=== PATIENT | male | born 1945 | race American Indian/Alaskan Native ===

== ENCOUNTER 2020-01-20 01:35 | Inpatient (IN) | payer MEDICARE ==
[2020-01-20] MEDS ORDERED: SODIUM CHLORIDE 0.9% 1000 ML 1,000 ML IV ONE (01:58)
[2020-01-20] MEDS ORDERED: ONDANSETRON 4 MG/2 ML INJ ONE ×2 (02:00→03:41)
[2020-01-20 02:14] LABS: Basophils % (Auto) 0.3 % (0.0-1.8); Eosinophils # (Auto) 0.1 K/mm3 (0.0-0.4); Eosinophils % (Auto) 0.4 % (0.0-4.3); Hematocrit 35.7 % (35.5-45.6); Hemoglobin 11.1 gm/dl (11.8-15.2); Lymphocytes # (Auto) 0.8 K/mm3 (1.2-5.4); Lymphocytes % (Auto) 5.6 % (13.4-35.0); Mean Corpuscular HGB Conc 31 % (32-34); Mean Corpuscular Volume 80 fl (84-94); Monocytes # (Auto) 0.9 K/mm3 (0.0-0.8); Monocytes % (Auto) 6.2 % (0.0-7.3); Platelet Count 364 K/mm3 (140-440); Red Blood Count 4.48 M/mm3 (3.65-5.03)
[2020-01-20 02:17] LABS: Red Cell Distribution Width 20.1 % (13.2-15.2)
[2020-01-20 02:40] LABS: Albumin 3.9 g/dL (3.9-5); Calcium 9.1 mg/dL (8.4-10.2)
--- NOTE | 2020-01-20 02:46 | XRay Report ---
ABDOMEN, 4 VIEWS INDICATION / CLINICAL INFORMATION: MAIN: Abd pain; vomiting x 1 day. COMPARISON: None available. FINDINGS: Mild to moderate gastric distention. There is mildly dilated loop of small bowel in the left side of the abdomen. Otherwise the bowel gas pattern is normal. No evidence for fecal impaction. No obvious f ree air. IMPRESSION: Abnormal bowel gas pattern. There is gastric distention with air-fluid level as well as p rominent loop of small bowel in the left side of the abdomen. Although findings are nonspecific, I ca nnot exclude the possibility of a small bowel obstruction. Signer Name: Letty Armijo MD Signed: 01/20/2020 2:41 AM Workstation Name: [id number]
--- NOTE | 2020-01-20 02:53 | Emergency Department Report ---
HPI - General Chief Complaint: Abdominal Pain Time Seen by Provider: 01/20/20 01:50 - HPI HPI: 75-year-old male presents to the emergency department via EMS from home with complaint of abdominal pain, nausea and vomiting that started about 8 PM this evening. The pain is worse in the lower abdomen but overall is generalized. He has not taken anything for symptoms prior to presentation. Patient has a past medical history of hypertension, hyperlipidemia diverticulosis/diverticulitis, and previous DVT. He has a surgical history of cholecystectomy, as well as a previous colon perforation secondary to an infected diverticulitis. No recent travel or sick contacts at home. His primary care physician is Dr. Faith. ED Past Medical Hx - Past Medical History Previous Medical History?: Yes Hx Hypertension: Yes Hx COPD: Yes (on 2 Liters home o2) - Surgical History Past Surgical History?: Yes Hx Cholecystectomy: Yes Additional Surgical History: bilateral hip replacement. colon rupture. hernia repair x 2 - Social History Smoking Status: Current Every Day Smoker ED Review of Systems ROS: Stated complaint: ABD PAIN/VOMITING Other details as noted in HPI Comment: All other systems reviewed and negative Constitutional: denies: chills, fever Eyes: denies: eye pain, vision change ENT: denies: ear pain, throat pain Respiratory: denies: cough, shortness of breath Cardiovascular: denies: chest pain, palpitations Gastrointestinal: abdominal pain, nausea, vomiting Genitourinary: denies: dysuria, discharge Musculoskeletal: denies: back pain, arthralgia Skin: denies: rash, lesions Neurological: denies: headache, weakness Physical Exam - Physical Exam Vital Signs: Vital Signs 01/20/20 01/20/20 01/20/20 01:46 01:49 02:01 Temperature 97.6 F Pulse Rate 98 H 93 H 107 H Respiratory 24 26 H 33 H Rate Blood Pressure 166/73 Blood Pressure 168/98 [left arm] O2 Sat by Pulse 97 94 Oximetry Physical Exam: GENERAL: Patient is ill-appearing and actively vomiting. HENT: Normocephalic. Atraumatic. Patient has moist mucous membranes. EYES: Extraocular motions are intact. NECK: Supple. Trachea is midline. CHEST/LUNGS: Clear to auscultation. There is no respiratory distress noted. HEART/CARDIOVASCULAR: Regular. There is no tachycardia. There is no murmur. ABDOMEN: Abdomen is soft. Generalized abdominal tenderness to palpation worse in the lower quadrants. No guarding. Patient has normal bowel sounds. SKIN: Skin is warm and dry. NEURO: The patient is awake, alert, and oriented. The patient is cooperative. The patient has no focal neurologic deficits. Normal speech. MUSCULOSKELETAL: There is no tenderness or deformity. There is no evidence of acute injury. ED Course Vital Signs 01/20/20 01/20/20 01/20/20 01:46 01:49 02:01 Temperature 97.6 F Pulse Rate 98 H 93 H 107 H Respiratory 24 26 H 33 H Rate Blood Pressure 166/73 Blood Pressure 168/98 [left arm] O2 Sat by Pulse 97 94 Oximetry ED Medical Decision Making - Lab Data Result diagrams: 01/20/20 01:52 01/20/20 01:52 - Radiology Data Radiology results: report reviewed, image reviewed interpreted by me: Abdominal x-ray shows some dilated bowel gas concerning for obstruction. CT abdomen pelvis wo con INDICATION / CLINICAL INFORMATION: Pt complains of "Generalized" abdominal pain, possible obstruct. TECHNIQUE: Axial CT imaging of abdomen and pelvis was obtained without contrast. Coronal and sagittal reformatted imaging obtained and reviewed. All CT scans at this location are performed using CT dose reduction for ALARA by means of automated exposure control. COMPARISON: None available. FINDINGS: CT abdomen without contrast demonstrates normal appearance of the liver, spleen, pancreas, and adrenal glands. Prior cholecystectomy. There are a few simple cysts associated with both kidneys but no evidence for solid mass or hydronephrosis. IVC filter is present. Moderate amount of calcific plaque is present in the mid to distal abdominal aorta and common iliac arteries. Small hiatal hernia. CT pelvis does not demonstrate mass or free fluid. GI tract is abnormal. There are multiple loops of fluid-filled dilated small bowel. The distal small bowel is collapsed. The appearance is most consistent with a mid small bowel obstruction. No free air or free fluid is appreciated. Incidental finding of previous partial sigmoid resection. A normal appendix is visualized. Chronic appearing scarring is present in both lung bases. No pleural effusion. Mild spondylitic change throughout the visualized spine. Bilateral hip arthroplasties are present. IMPRESSION: 1. Findings consistent with mid small bowel obstruction. Bowel obstruction appears to be secondary to adhesions. - Medical Decision Making This patient presents to the emergency department with some acute abdominal pain, nausea and vomiting. The patient has had multiple episodes of vomiting while in the emergency department. His labs show a mild leukocytosis and some renal insufficiency. CT scan of the abdomen and pelvis shows a mid small bowel obstruction, most likely secondary to adhesions. An NG tube will be placed. General surgery has been contacted and consulted. The patient has been accepted for admission by his primary care physician, Dr. Faith. Critical Care Time: Yes Critical care time in (mins) excluding proc time.: 35 Critical care attestation.: If time is entered above; I have spent that time in minutes in the direct care of this critically ill patient, excluding procedure time. Critical care time was spent on this patient in doing his initial evaluation, multiple re- evaluations, ordering and interpretation of labs and imaging, discussion with general surgery, discussion with the admitting physician, and multiple discussions with the patient. Critical Care Time: 35 minutes ED Disposition Clinical Impression: Small bowel obstruction, Intractable nausea and vomiting, CANDACE (acute kidney injury) Hypertension Qualifiers: Hypertension type: essential hypertension Qualified Code(s): I10 - Essential (primary) hypertension Disposition: OP ADMIT IP TO THIS HOSP Is pt being admited?: Yes Condition: Serious Instructions: Hypertension (ED) Referrals: MIRIAM YADAV MD [Primary Care Provider] - 3-5 Days Time of Disposition: 06:15
[2020-01-20] MEDS ORDERED: ONDANSETRON 4 MG/2 ML INJ IV ONE (03:39)
[2020-01-20] MEDS ORDERED: MORPHINE 4 MG/1 ML INJ IV ONE (03:39)
[2020-01-20] MEDS ORDERED: MORPHINE 2 MG/1 ML INJ ONE (03:42)
--- NOTE | 2020-01-20 06:11 | Cat Scan Report ---
CT abdomen pelvis wo con INDICATION / CLINICAL INFORMATION: Pt complains of "Generalized" abdominal pain, possible obstruct. TECHNIQUE: Axial CT imaging of abdomen and pelvis was obtained without contrast. Coronal and sagittal reformatte d imaging obtained and reviewed. All CT scans at this location are performed using CT dose reduction for ALARA by means of automated exposure control. COMPARISON: None available. FINDINGS: CT abdomen without contrast demonstrates normal appearance of the liver, spleen, pancreas, and adrena l glands. Prior cholecystectomy. There are a few simple cysts associated with both kidneys but no fletcher dence for solid mass or hydronephrosis. IVC filter is present. Moderate amount of calcific plaque is present in the mid to distal abdominal aorta and common iliac arteries. Small hiatal hernia. CT pelvis does not demonstrate mass or free fluid. GI tract is abnormal. There are multiple loops of fluid-filled dilated small bowel. The distal small bowel is collapsed. The appearance is most consist ent with a mid small bowel obstruction. No free air or free fluid is appreciated. Incidental finding of previous partial sigmoid resection. A normal appendix is visualized. Chronic appearing scarring is present in both lung bases. No pleural effusion. Mild spondylitic change throughout the visualized spine. Bilateral hip arthroplasties are present. IMPRESSION: 1. Findings consistent with mid small bowel obstruction. Bowel obstruction appears to be secondary to adhesions. Signer Name: Letty Armijo MD Signed: 01/20/2020 6:06 AM Workstation Name: [id number]
[2020-01-20] MEDS ORDERED: PIPERACIL/TAZOBACTA 4.5/NS 100 4.5 GM/100 ML VIAL IV ONE (06:15)
[2020-01-20 07:16] LABS: Bilirubin,Urine NEG (Negative); Blood,Urine NEG (Negative); Color,Urine Yellow (Yellow); Mucus,Urine FEW /HPF; Protein,Urine <15 mg/dL mg/dL (Negative); RBC,Urine < 1.0 /HPF (0.0-6.0); Urobilinogen,Urine < 2.0 mg/dL (<2.0)
[2020-01-20 07:39] LABS: WBC,Urine < 1.0 /HPF (0.0-6.0)
[2020-01-20] MEDS ORDERED: hydrALAZINE 20 MG/1 ML INJ IV ONE (07:52)
[2020-01-20] MEDS: MORPHINE 2 MG/1 ML INJ IV PRN ×3 (08:01→22:29)
[2020-01-20] MEDS ORDERED: LORazepam 2 MG/ML VIAL ONE (09:09)
[2020-01-20] MEDS ORDERED: LORazepam 2 MG/ML VIAL IV ONE (09:20)
--- NOTE | 2020-01-20 11:23 | Consultation ---
History of Present Illness Consult date: 01/20/20 Reason for consult: abdominal pain Requesting physician: JAG FRANCIS Chief complaint: abdominal pain - History of present illness History of present illness: 74yo M with history of prior abdominal surgeries presents to the emergency room with complaints of acute onset of abdominal pain, nausea, vomiting since last evening. Evaluation with CT scan showed evidence suggestive of small bowel obstruction. Patient assessed to be clinically dry but otherwise stable by the emergency department. Patient was admitted. General surgery was consulted. Patient reports that he has never had a bowel obstruction before. His original surgery was about 10 to 12 years ago for a perforated diverticulitis for which a colon resection and colostomy had to be done. He later went back for a colostomy reversal. There were no complications from the surgeries. Currently, he reports that he has no abdominal pain. He reports that his abdomen is of normal size. Has no nausea or vomiting. He has passed gas since coming to the hospital. He would like the NG tube removed and he would like something to drink. Past History Past Medical History: COPD (oxygen dependent), hypertension Past Surgical History: hernia repair, total hip replacement, bowel surgery Social history: smoking Family history: no significant family history Medications and Allergies Allergies Allergy/AdvReac Type Severity Reaction Status Date / Time No Known Allergies Allergy Verified 01/20/20 02:52 Active Meds: Active Medications Morphine Sulfate (Morphine) 2 mg IV Q6HR PRN PRN Reason: Pain, Moderate (4-6) Last Admin: 01/20/20 08:01 Dose: 2 mg Documented by: Ondansetron HCl (Zofran) 4 mg IV Q6HR PRN PRN Reason: Nausea And Vomiting Review of Systems - Constitutional no fever, no chills, no chronic pain - Cardiovascular shortness of breath, dyspnea on exertion, no chest pain - Respiratory no cough - Gastrointestinal abdominal pain, nausea, vomiting, change in bowel habits, dyspepsia/bloating, no hematemesis, no coffee ground emesis, no BRBPR, no melena, no hematochezia - Genitourinary no dysuria - Muskuloskeletal no low back pain - Integumentary no rash, no wounds Exam Vital Signs Pulse Resp 98 H 24 01/20/20 01:46 01/20/20 01:46 - General physical appearance Positive: well developed, well nourished, no distress, no pain, obese - Eyes Positive: normal occular movement - Respiratory Positive: normal expansion, clear to auscultation, other (mild increased effort) - Cardiovascular Rhythm: regular - Abdomen Abdomen: Present: soft, bowel sounds hypoactive, surgical scars (well healed). Absent: tender, distended, guarding, rigid - Integumentary no rash, no growths, no abnormal pigmentation - Neurologic Neurologic: alert and oriented to time, place and person, motor strength and sensation are grossly intact - Psychiatric Psychiatric: appropriate mood/affect, intact judgment & insight, cooperative Results - Labs 01/20/20 01:52 01/20/20 01:52 Abnormal lab results 01/20/20 01/20/20 Range/Units 01:52 01:52 WBC 14.6 H (4.5-11.0) K/mm3 Hgb 11.1 L (11.8-15.2) gm/dl MCV 80 L (84-94) fl MCH 25 L (28-32) pg MCHC 31 L (32-34) % RDW 20.1 H (13.2-15.2) % Lymph % (Auto) 5.6 L (13.4-35.0) % Lymph # 0.8 L (1.2-5.4) K/mm3 [place] # 0.9 H (0.0-0.8) K/mm3 Seg Neutrophils % 87.5 H (40.0-70.0) % Seg Neutrophils # 12.7 H (1.8-7.7) K/mm3 BUN 21 H (9-20) mg/dL Creatinine 1.7 H (0.8-1.5) mg/dL Glucose 172 H (75-100) mg/dL ALT 6 L (7-56) units/L Diabetes panel 01/20/20 Range/Units 01:52 Sodium 140 (137-145) mmol/L Potassium 3.9 (3.6-5.0) mmol/L Chloride 98.9 (98-107) mmol/L Carbon Dioxide 25 (22-30) mmol/L BUN 21 H (9-20) mg/dL Creatinine 1.7 H (0.8-1.5) mg/dL Glucose 172 H (75-100) mg/dL Calcium 9.1 (8.4-10.2) mg/dL AST 16 (5-40) units/L ALT 6 L (7-56) units/L Alkaline Phosphatase 109 (35-129) units/L Total Protein 8.0 (6.3-8.2) g/dL Albumin 3.9 (3.9-5) g/dL Calcium panel 01/20/20 Range/Units 01:52 Calcium 9.1 (8.4-10.2) mg/dL Albumin 3.9 (3.9-5) g/dL Pituitary panel 01/20/20 Range/Units 01:52 Sodium 140 (137-145) mmol/L Potassium 3.9 (3.6-5.0) mmol/L Chloride 98.9 (98-107) mmol/L Carbon Dioxide 25 (22-30) mmol/L BUN 21 H (9-20) mg/dL Creatinine 1.7 H (0.8-1.5) mg/dL Glucose 172 H (75-100) mg/dL Calcium 9.1 (8.4-10.2) mg/dL Adrenal panel 01/20/20 Range/Units 01:52 Sodium 140 (137-145) mmol/L Potassium 3.9 (3.6-5.0) mmol/L Chloride 98.9 (98-107) mmol/L Carbon Dioxide 25 (22-30) mmol/L BUN 21 H (9-20) mg/dL Creatinine 1.7 H (0.8-1.5) mg/dL Glucose 172 H (75-100) mg/dL Calcium 9.1 (8.4-10.2) mg/dL Total Bilirubin 0.40 (0.1-1.2) mg/dL AST 16 (5-40) units/L ALT 6 L (7-56) units/L Alkaline Phosphatase 109 (35-129) units/L Total Protein 8.0 (6.3-8.2) g/dL Albumin 3.9 (3.9-5) g/dL - Imaging Abdominal x-ray: report reviewed, image reviewed CT scan - abdomen: report reviewed, image reviewed CT scan - pelvis: report reviewed, image reviewed Assessment and Plan - Patient Problems (1) Small bowel obstruction Current Visit: Yes Status: Acute Plan to address problem: Pt stable. When I initially saw the patient in the morning, he was asymptomatic and reporting that he had recently passed flatus. The plan was to continue conservative care and we made a deal such that I would return in the afternoon to reassess him and possibly clamp or remove the NG tube if he was continuing to get better. I returned in the mid afternoon to reassess him. At that point, he asked if he could go home. I explained that he would be leaving AGAINST MEDICAL ADVICE and would have to sign a form to be released. However, it is his choice if he wishes to leave. He is not forced to stay here. I reminded him of why he was admitted and explained that most likely this will get worse if he goes home before the problem is resolved. It may even require him to return and be at high risk for emergency surgery. He said he understood but he wanted to go home. He also wanted a glass of water. I reported to the nurse that he wanted an AMA form and that I had given him a cup of water per his request. She said the attending physician was on his way. My feeling is that he is not ready to go home, but I have to respect his right t o make his own decisions. He does not seem altered in any way and seems to have the ability to make decisions for himself. We will continue to follow if he changes his mind and stays in the hospital. Please call with any questions. Time=50min
[2020-01-20] MEDS ORDERED: hydrALAZINE 20 MG/1 ML INJ IV PRN (21:27)
--- NOTE | 2020-01-20 21:39 | History and Physical Report ---
History of Present Illness Date of examination: 01/20/20 Date of admission: 01/20/20 06:16 Chief complaint: Intractable N/V, abd pain. History of present illness: Patient presented to the Ed, with CC as above she was evaluated, and admitted from the ED, for complete monitoring, and to have Gen surgery eval.he had treatened to leave AMA earlier today, but ok npw to stay until stable.I will start him on IVF., and follow Gen Surgery. Past History Past Medical History: No medical history, anemia, COPD (oxygen dependent), hyp ertension, other (ckd) Past Surgical History: hernia repair, total hip replacement, bowel surgery Social history: smoking Family history: no significant family history Medications and Allergies Allergies Allergy/AdvReac Type Severity Reaction Status Date / Time No Known Allergies Allergy Verified 01/20/20 02:52 Active Meds: Active Medications Hydralazine HCl (Apresoline) 20 mg IV Q6HR PRN PRN Reason: Blood Pressure Dextrose/Sodium Chloride (D5ns 0.2%) 1,000 mls @ 100 mls/hr IV DIRECT VIDA Morphine Sulfate (Morphine) 2 mg IV Q6HR PRN PRN Reason: Pain, Moderate (4-6) Last Admin: 01/20/20 18:26 Dose: 2 mg Documented by: Ondansetron HCl (Zofran) 4 mg IV Q6HR PRN PRN Reason: Nausea And Vomiting Review of Systems Constitutional: fatigue, weakness, chronic pain Gastrointestinal: nausea, vomiting Musculoskeletal: low back pain Exam - Constitutional Vitals: Temp Pulse Resp BP Pulse Ox 98.7 F 116 H 20 138/77 93 01/20/20 13:15 01/20/20 13:15 01/20/20 13:15 01/20/20 13:15 01/20/20 13:15 General appearance: Present: mild distress, well-nourished - EENT Eyes: Present: PERRL ENT: hearing intact, clear oral mucosa - Neck Neck: Present: supple, normal ROM - Respiratory Respiratory effort: normal Respiratory: bilateral: CTA - Cardiovascular Heart Sounds: Present: S1 & S2. Absent: rub, click - Extremities Extremities: pulses symmetrical, No edema Peripheral Pulses: within normal limits - Abdominal General gastrointestinal: Present: soft, non-tender, non-distended, normal bowel sounds Male genitourinary: Present: deferred - Rectal Rectal Exam: deferred - Integumentary Integumentary: Present: clear, warm, dry - Musculoskeletal Musculoskeletal: gait normal, strength equal bilaterally - Psychiatric Psychiatric: appropriate mood/affect, intact judgment & insight - Neurologic Neurologic: CNII-XII intact, moves all extremities Results - Labs CBC & Chem 7: 01/20/20 01:52 01/20/20 01:52 Labs: Abnormal lab results 01/20/20 01/20/20 Range/Units 01:52 01:52 WBC 14.6 H (4.5-11.0) K/mm3 Hgb 11.1 L (11.8-15.2) gm/dl MCV 80 L (84-94) fl MCH 25 L (28-32) pg MCHC 31 L (32-34) % RDW 20.1 H (13.2-15.2) % Lymph % (Auto) 5.6 L (13.4-35.0) % Lymph # 0.8 L (1.2-5.4) K/mm3 [place] # 0.9 H (0.0-0.8) K/mm3 Seg Neutrophils % 87.5 H (40.0-70.0) % Seg Neutrophils # 12.7 H (1.8-7.7) K/mm3 BUN 21 H (9-20) mg/dL Creatinine 1.7 H (0.8-1.5) mg/dL Glucose 172 H (75-100) mg/dL ALT 6 L (7-56) units/L Assessment and Plan - Patient Problems (1) Intractable nausea and vomiting Current Visit: Yes Status: Acute Plan to address problem: anti emetic. (2) CANDACE (acute kidney injury) Current Visit: Yes Status: Chronic Plan to address problem: hydration. (3) Abdominal pain Current Visit: Yes Status: Acute Plan to address problem: Pain control
[2020-01-20] MEDS: D5W/0.2% NACL 1,000 ML IV SCH (22:23)
[2020-01-21] MEDS: MORPHINE 2 MG/1 ML INJ IV PRN ×3 (08:54→22:00)
--- NOTE | 2020-01-21 11:25 | XRay Report ---
ABDOMEN 2 VIEW(S) INDICATION / CLINICAL INFORMATION: SBO f/u. COMPARISON: Abdomen x-ray 01/20/2020 FINDINGS: TUBES / LINES: None. BOWEL GAS PATTERN: No significant abnormality. Previously noted fluid-filled dilated loops of small b owel are no longer visualized. FREE AIR / EXTRALUMINAL GAS: None seen. ADDITIONAL FINDINGS: Cholecystectomy clips right upper quadrant of abdomen, bilateral total hip arthr oplasties and IVC filter is again noted. IMPRESSION: 1. No significant abnormality. Resolution of previously noted small bowel obstruction Signer Name: Juan Pablo Valdez MD Signed: 01/21/2020 11:21 AM Workstation Name: [id number]
--- NOTE | 2020-01-21 13:14 | Progress Note ---
Assessment and Plan - Patient Problems (1) Small bowel obstruction Current Visit: Yes Status: Acute Plan to address problem: Pt stable. SBO appears to have resolved clinically and by X-ray. NGT removed and started on clears. If tolerated, can advance diet as tolerated tomorrow. Please call with questions. Subjective Date of service: 01/21/20 Patient Reports: Positive: no new complaints, feels better, pain is less, bowel movement. Negative: nausea, vomiting Objective Vital Signs - 12hr 01/21/20 01/21/20 03:11 08:24 Temperature 98.6 F 99.1 F Pulse Rate 75 79 Respiratory 18 20 Rate Blood Pressure 109/51 152/81 O2 Sat by Pulse 97 97 Oximetry - General physical appearance no distress, no pain, obese, other (looks better. Breathing better) - ENT other (NGT with no output) - Respiratory normal expansion, normal respiratory effort - Abdomen soft, not tender, not distended, not guarding, not rigid - Psychiatric oriented to time, oriented to person, oriented to place, speech is normal, memory intact - Labs 01/20/20 01:52 01/20/20 01:52
[2020-01-21] MEDS: D5W/0.2% NACL 1,000 ML IV SCH (16:44)
--- NOTE | 2020-01-22 00:22 | Progress Note ---
Assessment and Plan - Patient Problems (1) Intractable nausea and vomiting Current Visit: Yes Status: Acute Plan to address problem: anti emetic. (2) CANDACE (acute kidney injury) Current Visit: Yes Status: Chronic Plan to address problem: hydration. (3) Abdominal pain Current Visit: Yes Status: Acute Plan to address problem: Pain control better. Subjective Date of service: 01/21/20 Principal diagnosis: ABD Pain/ N/V Interval history: Patient seen examined, resting in bed, ok, NAD, gen surg notes reviewed. no new issues at this time.This is a late note entry. Objective - Constitutional Vitals: Vital Signs - 12hr 01/21/20 01/21/20 01/21/20 12:59 19:44 22:00 Temperature 98.1 F 98.3 F Pulse Rate 78 Respiratory 20 20 20 Rate Blood Pressure 135/61 134/75 O2 Sat by Pulse 100 Oximetry General appearance: Present: mild distress, well-nourished - EENT Eyes: PERRL, EOM intact ENT: hearing intact, clear oral mucosa Ears: bilateral: normal - Neck Neck: supple, normal ROM - Respiratory Respiratory effort: normal Respiratory: bilateral: CTA - Breasts Breasts: deferred - Cardiovascular Rhythm: regular Heart Sounds: Present: S1 & S2. Absent: gallop, rub Extremities: pulses intact, No edema, normal color, Full ROM - Gastrointestinal General gastrointestinal: Present: soft, non-tender, non-distended, normal bowel sounds Rectal Exam: deferred - Genitourinary Male genitourinary: deferred - Integumentary Integumentary: clear, warm, dry - Musculoskeletal Musculoskeletal: 1, strength equal bilaterally - Neurologic Neurologic: moves all extremities - Psychiatric Psychiatric: memory intact, appropriate mood/affect, intact judgment & insight - Labs CBC & Chem 7: 01/20/20 01:52 01/20/20 01:52
[2020-01-22] MEDS: D5W/0.2% NACL 1,000 ML IV SCH ×2 (03:00→14:10)
[2020-01-22] MEDS: MORPHINE 2 MG/1 ML INJ IV PRN ×4 (04:24→21:26)
[2020-01-22] MEDS: ONDANSETRON 4 MG/2 ML INJ IV PRN ×2 (04:30→10:51)
--- NOTE | 2020-01-22 12:04 | Progress Note ---
Assessment and Plan - Patient Problems (1) Small bowel obstruction Current Visit: Yes Status: Acute Plan to address problem: Pt stable. SBO appears to have resolved clinically and by X-ray. Tolerated clears. Recommend: 1) advance to full liquid diet today 2) If full liquid diet tolerated today, may d/c home. Would stay on full liquid diet for 1 week and the advance as tolerated. 3) f/u prn. Please call with questions. Subjective Date of service: 01/22/20 Patient Reports: Positive: no new complaints, feels better, tolerating liquids well, flatus. Negative: nausea, vomiting Objective Vital Signs - 12hr 01/22/20 01/22/20 01/22/20 01:55 04:24 04:54 Temperature 98.6 F Pulse Rate 79 Respiratory 20 20 18 Rate Blood Pressure 143/69 Blood Pressure [left arm] O2 Sat by Pulse 100 Oximetry 01/22/20 07:30 Temperature 98.2 F Pulse Rate 73 Respiratory 18 Rate Blood Pressure Blood Pressure 123/56 [left arm] O2 Sat by Pulse 97 Oximetry - General physical appearance no distress, no pain, obese, other (looks well) - Respiratory normal expansion, normal respiratory effort - Abdomen soft, not tender, not distended - Psychiatric oriented to time, oriented to person, oriented to place, speech is normal, memory intact - Labs 01/20/20 01:52 01/20/20 01:52
--- NOTE | 2020-01-22 20:57 | Progress Note ---
Assessment and Plan - Patient Problems (1) Intractable nausea and vomiting Current Visit: Yes Status: Acute Plan to address problem: anti emetic. (2) CANDACE (acute kidney injury) Current Visit: Yes Status: Chronic Plan to address problem: hydration. (3) Abdominal pain Current Visit: Yes Status: Acute Plan to address problem: Pain control better. Subjective Date of service: 01/22/20 Principal diagnosis: ABD Pain/ N/V Interval history: Patient seen examined, resting in bed, ok, NAD, gen surg notes reviewed. no new issues at this time.This is a late note entry. Patient seen/examined, resting in bed, notes reviewed. patient states he was told by the Gen surgery , that if he continues to tolerate full liqid, he can proceed with soft diet tomorrow. bu the notes is quite contradictory, and patient therefore uncomfortable going home today, until he tolerates soft diet as discussed with him.I will switch him to soft diet, and if he tolerates it, he will be d/c home. Objective - Constitutional Vitals: Vital Signs - 12hr 01/22/20 01/22/20 01/22/20 11:00 17:00 19:49 Temperature 98.5 F 97.3 F L Pulse Rate 78 74 Pulse Rate [ 78 Brachial] Respiratory 19 20 Rate Blood Pressure 135/71 Blood Pressure 135/66 [left arm] O2 Sat by Pulse 98 99 Oximetry General appearance: Present: mild distress, well-nourished - EENT Eyes: PERRL, EOM intact ENT: hearing intact, clear oral mucosa Ears: bilateral: normal - Neck Neck: supple, normal ROM - Respiratory Respiratory effort: normal Respiratory: bilateral: CTA - Breasts Breasts: deferred - Cardiovascular Rhythm: regular Heart Sounds: Present: S1 & S2. Absent: gallop, rub Extremities: pulses intact, No edema, normal color, Full ROM - Gastrointestinal General gastrointestinal: Present: soft, non-tender, non-distended, normal bowel sounds Rectal Exam: deferred - Genitourinary Male genitourinary: deferred, normal - Integumentary Integumentary: clear, warm, dry - Musculoskeletal Musculoskeletal: 1, strength equal bilaterally - Neurologic Neurologic: moves all extremities - Psychiatric Psychiatric: memory intact, appropriate mood/affect, intact judgment & insight - Labs CBC & Chem 7: 01/20/20 01:52 01/20/20 01:52
[2020-01-22] MEDS: ENOXAPARIN 40 MG/0.4 ML INJ SUB-Q SCH (21:26)
[2020-01-23] MEDS: D5W/0.2% NACL 1,000 ML IV SCH ×3 (00:15→20:41)
[2020-01-23] MEDS: MORPHINE 2 MG/1 ML INJ IV PRN ×3 (03:57→18:50)
--- NOTE | 2020-01-23 09:16 | Progress Note ---
Assessment and Plan - Patient Problems (1) Small bowel obstruction Current Visit: Yes Status: Acute Plan to address problem: Pt stable. SBO appears to have resolved clinically and by X-ray. Started on soft diet by primary MD. I think he would do better with a more gradual increase in diet. Recommend: 1) stay on full liquid diet for about 1 week and then advance as tolerated. 2) f/u prn. 3) d/c home per primary MD. Please call with questions. Subjective Date of service: 01/23/20 Patient Reports: Positive: flatus, no bowel movement, other (feels full quickly; no bloating or abdominal pain). Negative: nausea Objective Vital Signs - 12hr 01/22/20 01/22/20 01/22/20 21:26 21:56 22:00 Temperature Pulse Rate 74 Pulse Rate [ Brachial] Respiratory 18 18 Rate Blood Pressure O2 Sat by Pulse Oximetry 01/22/20 01/23/20 01/23/20 23:00 02:16 03:57 Temperature 98.3 F Pulse Rate 78 Pulse Rate [ 74 Brachial] Respiratory 20 18 Rate Blood Pressure 142/70 O2 Sat by Pulse 99 99 Oximetry 01/23/20 01/23/20 04:27 08:00 Temperature 98.1 F Pulse Rate 74 Pulse Rate [ Brachial] Respiratory 20 24 Rate Blood Pressure 143/77 O2 Sat by Pulse 99 Oximetry - General physical appearance no distress, no pain, obese, other (looks well) - Respiratory normal expansion, normal respiratory effort - Abdomen soft, not tender, not distended - Integumentary no rash, no growths, no abnormal pigmentation - Psychiatric oriented to time, oriented to person, oriented to place, speech is normal, memory intact - Labs 01/20/20 01:52 01/20/20 01:52
[2020-01-23] MEDS: ONDANSETRON 4 MG/2 ML INJ IV PRN (18:54)
[2020-01-23] MEDS: ENOXAPARIN 40 MG/0.4 ML INJ SUB-Q SCH (21:29)
--- NOTE | 2020-01-23 23:20 | Discharge Summary ---
Providers - Providers Date of Admission: 01/20/20 06:16 Date of discharge: 01/24/20 Attending physician: KAMARI BOOTH 01/20/20 06:20 Consult to Physician [CONS] Routine Comment: Dr. Sung spoke with Dr. Hicks @ 0610 Consulting Provider: JOANIE HICKS Physician Instructions: Reason For Exam: Small Bowel Obstruction Primary care physician: MIRIAM YADAV Hospitalization Reason for admission: ABD pain, due to small bowel obstrution. Condition: Fair Hospital course: Patient presented to the ER, on the day of admission. with CC of abd pain, N/V, evaluated in the ED, and dx with small bowel obstruction, present from home. He was admitted, and treated with IV abx, bowel rest, and hydration. Xray repeated, post CT of the Abd, revealed improvement of the obstruction. Patients nv subsided .He later tolerated full liquid, and advanced to soft diet, which he also tolerated.. He was seen also in consultation, by the General surgery.He will be d/c home tomorrow. Disposition: DC- TO HOME OR SELFCARE - Discharge Diagnoses (1) Intractable nausea and vomiting Status: Resolved (2) CANDACE (acute kidney injury) Status: Chronic (3) Abdominal pain Status: Chronic (4) Abdominal pain Status: Acute Comment: Due to small bowel obstruction, present on admission. Core Measure Documentation - Palliative Care Palliative Care/ Comfort Measures: Not Applicable - Core Measures Any of the following diagnoses?: history only Exam - Constitutional Vitals: Temp Pulse Resp BP Pulse Ox 98.8 F 80 20 155/81 100 01/23/20 20:32 01/23/20 20:32 01/23/20 20:32 01/23/20 20:32 01/23/20 20:32 General appearance: Present: no acute distress, well-nourished - EENT Eyes: Present: PERRL ENT: hearing intact, clear oral mucosa - Neck Neck: Present: supple, normal ROM - Respiratory Respiratory effort: normal Respiratory: bilateral: CTA - Cardiovascular Heart Sounds: Present: S1 & S2. Absent: rub, click - Extremities Extremities: pulses symmetrical, No edema Peripheral Pulses: within normal limits - Abdominal General gastrointestinal: Present: soft, non-tender, non-distended, normal bowel sounds Male genitourinary: Present: deferred - Rectal Rectal Exam: deferred - Integumentary Integumentary: Present: clear, warm, dry - Musculoskeletal Musculoskeletal: gait normal, strength equal bilaterally - Psychiatric Psychiatric: appropriate mood/affect, intact judgment & insight - Neurologic Neurologic: CNII-XII intact, moves all extremities Plan Activity: no restrictions Diet: other (soft diet, until see by me on follow up in thew office,) Follow up with: MIRIAM YADAV MD [Primary Care Provider] - 3-5 Days KAMARI BOOTH DO [Staff Physician] - 7 Days
[2020-01-24] MEDS: MORPHINE 2 MG/1 ML INJ IV PRN ×2 (00:26→08:50)
[2020-01-24] MEDS: D5W/0.2% NACL 1,000 ML IV SCH (05:49)
[2020-01-24] MEDS: ONDANSETRON 4 MG/2 ML INJ IV PRN (08:50)
[2020-01-24 09:32] VITALS: BP 138/63
== END 2020-01-24 12:00 | disposition home or self-care (01) | DRG 389 ==
LOC: ED 01:35 → EDBD 01:35 → 2B-ACE 06:16
PROVIDERS: ADMIT Internal Medicine Hematology & Oncology; ATTEND Internal Medicine Hematology & Oncology
DX: K56.699 Other intestinal obstruction unspecified as to partial versus complete obstruction (principal); N17.9 Acute kidney failure, unspecified; Z71.6 Tobacco abuse counseling; F17.210 Nicotine dependence, cigarettes, uncomplicated; E78.5 Hyperlipidemia, unspecified; I12.9 Hypertensive chronic kidney disease with stage 1 through stage 4 chronic kidney disease, or unspecified chronic kidney disease; N18.9 Chronic kidney disease, unspecified; Z86.718 Personal history of other venous thrombosis and embolism; Z90.49 Acquired absence of other specified parts of digestive tract; J44.9 Chronic obstructive pulmonary disease, unspecified; Z96.643 Presence of artificial hip joint, bilateral; Z99.81 Dependence on supplemental oxygen; D64.9 Anemia, unspecified; G89.29 Other chronic pain
CPT/HCPCS: 36415; 74018; 74019; 74176; 80053; 81001; 83690; 85025; 99406; G0378; J0360; J1650; J2060; J2270; J2405; J2543; J7030